=== PATIENT | female | born 1990 | race Caucasian/White ===

== ENCOUNTER → 2016-10-17 | Outpatient (CLI) | payer OTHER ==
[~2016-10-17] MED LIST: ALBU8.5H INH; BUDE10.22 INH; METO25TA6 PO; SALINE FLUSH 10ml SYRINGE ONE; SINCALIDE 5 MCG/VIAL IJ ONE; SODIUM CHLORIDE (Bacteriostatic) 30ml VIAL ONE
--- NOTE | 2016-10-17 10:12 | DI ---
Indication: ITS.REASON: R10.13 Epigastric pain PROCEDURE: NM HEPATOBIL/EF: Encounter: Initial Comparison: None Technique: 6.1 mCi of Tc-99m mebrofenin was injected intravenously. At approximately 61 minutes following this administration, 1.3 mcg of Kinevac was administered intravenously. Anterior planar images were obtained and a time/activity curve was calculated. FINDINGS: Radiotracer uptake is seen homogenously within the liver. There is normal clearance of radiotracer from the blood pool. The common bile duct is visualized at approximately 8 minutes. The gallbladder is visualized by 30 minutes, and radiotracer is excreted into the small bowel. There is no evidence of radiotracer outside the biliary or gastrointestinal tract. The gallbladder ejection fraction is normal at 84%. IMPRESSION: 1. Gallbladder visualization excluding acute cholecystitis. 2. Normal gallbladder ejection fraction of 84%, excluding biliary dyskinesia. .
== END ==
LOC: IMA 07:56
PROVIDERS: ATTEND Family Medicine
DX: R10.13 Epigastric pain (principal)
CPT/HCPCS: 78227; A9537; J2805